=== PATIENT | female | born 1985 | race Two or more races ===

== ENCOUNTER 2018-06-01 16:44 | Emergency (ER) | payer MEDICAID ==
[~2018-06-01] VITALS: Ht 162.6 cm; Wt 98.0 kg
[2018-06-01] MEDS ORDERED: KETOROLAC TROMETH 60MG/2ML VIAL IM ONE (18:00)
[2018-06-01] MEDS ORDERED: METHOCARBAMOL 500 MG TAB PO ONE (18:00)
[2018-06-01 18:33] VITALS: BP 119/77
== END 2018-06-01 18:47 | disposition home or self-care (01) ==
LOC: ER 16:44
DX: M54.6 Pain in thoracic spine (principal); V49.49XA Driver injured in collision with other motor vehicles in traffic accident, initial encounter; Y93.89 Activity, other specified; Y99.8 Other external cause status; Y92.488 Other paved roadways as the place of occurrence of the external cause
CPT/HCPCS: 96372; 99283; J1885

== ENCOUNTER 2023-02-15 12:53 | Emergency (ER) | payer MEDICAID ==
[~2023-02-15] VITALS: Ht 160 cm; Wt 79.0 kg
[2023-02-15 13:32] LABS: Basophils # (auto) 0 10 ^3/uL (0-0.2); Basophils % (auto) 0.4 % (0.0-2.0); Eosinophils # (auto) 0 10 ^3/uL (0-0.8); Hemoglobin 12.2 g/dL (12.2-16.2); Mean Corpuscular Hemoglobin 20.9 pg (28.0-32.0); Monocytes # (auto) 0.7 10 ^3/uL (0-1.3); White Blood Cell 9.2 10^3/uL (4.4-10.8)
[2023-02-15 13:34] LABS: Eosinophils % (auto) 0.3 % (0.0-7.0); Hematocrit 38.5 % (36.0-46.0); Lymphocytes # (auto) 1.2 10 ^3/uL (0.4-5.4); Lymphocytes % (auto) 13.2 % (10.0-50.0); Mean Corpuscular Hgb Conc. 31.6 g/dL (32.0-36.0); Mean Corpuscular Volume 66.1 fL (80.0-100.0); Monocytes % (auto) 7.3 % (0.0-12.0); Neutrophils # (auto) 7.3 10 ^3/uL (1.6-8.6); Neutrophils % (auto) 78.8 % (37.0-80.0); Red Blood Cells 5.82 10^6/uL (4.0-5.20)
[2023-02-15 13:35] LABS: Red Cell Distribution Width 24.1 % (11.8-14.3)
[2023-02-15 13:50] LABS: Albumin 3.9 g/dL (3.4-5.0); Calcium 9.5 mg/dL (8.5-10.1); Potassium 3.8 mmol/L (3.5-5.1)
[2023-02-15 13:53] LABS: BUN/Creatinine Ratio 19.6 (10.0-20.0); Bilirubin, Total 1.2 mg/dL (0.2-1.0); Total Protein 7.4 g/dL (6.4-8.2)
[2023-02-15 16:05] LABS: Urine Bacteria NONE SEEN /hpf (None Seen); Urine Blood Negative /uL (Negative); Urine Mucus MANY (None Seen); Urine Specific Gravity 1.036 (1.001-1.035); Urine WBC 23 /hpf (0 - 5)
[2023-02-15] MEDS ORDERED: PIPERACILLIN-TAZOB 3.375GM 100 ML IV ONE (17:30)
[2023-02-15] MEDS ORDERED: SODIUM CHLORIDE 0.9% 1,000 ML IVB ONE (17:30)
[2023-02-15 18:10] VITALS: BP 112/69
[2023-02-15] MEDS ORDERED: IOHEXOL 350 MG/ML 100ML IJ ONE (18:22)
[2023-02-15] MEDS ORDERED: HYDROcodone-ACET 10/325MG TAB PO ONE (23:45)
[2023-02-15] MEDS ORDERED: DOXYCYCLINE 100 MG TAB/CAP PO ONE (23:45)
[2023-02-15] MEDS ORDERED: metroNIDAZOLE 500 MG TAB PO ONE (23:45)
[2023-02-15] MEDS ORDERED: DOXY-286 PO (23:46)
[2023-02-15] MEDS ORDERED: HYDR-4798 PO (23:46)
[2023-02-15] MEDS ORDERED: METR500T14 PO (23:46)
== END 2023-02-16 | disposition home or self-care (01) ==
LOC: ER 12:53
DX: K63.0 Abscess of intestine (principal); N39.0 Urinary tract infection, site not specified; Z98.890 Other specified postprocedural states; Z98.51 Tubal ligation status; Z98.84 Bariatric surgery status; Z90.722 Acquired absence of ovaries, bilateral
CPT/HCPCS: 36415; 74176; 74177; 76830; 76856; 80053; 81001; 81025; 83605; 83690; 85025; 87040; 87491; 87591; 96365; 96366; 99285; J2543; J7030; Q9967